=== PATIENT | female | born 1990 | race African-American/Black ===

== ENCOUNTER 2020-04-09 21:31 | Emergency (ER) | payer OTHER ==
[~2020-04-09] VITALS: Ht 167.6 cm; Wt 61.2 kg
[2020-04-09] MEDS ORDERED: TRAMADOL 50 MG50 MG PO (21:40)
[2020-04-09] MEDS ORDERED: AMOXICILLIN 50500 MG (21:40)
[2020-04-10] MEDS ORDERED: APAP W/CODEINE1 TA2 PO (00:57)
[2020-04-10] MEDS ORDERED: CLINDAMYCIN HC300 MG PO (00:57)
[2020-04-10 01:23] VITALS: BP 124/76
== END 2020-04-10 01:24 | disposition home or self-care (01) ==
LOC: ER 21:31
DX: K02.9 Dental caries, unspecified (principal); K04.7 Periapical abscess without sinus; Z79.2 Long term (current) use of antibiotics; Z79.899 Other long term (current) drug therapy